=== PATIENT | male | born 1945 | race Caucasian/White ===

== ENCOUNTER 2018-02-28 18:51 | Emergency (ER) | payer OTHER ==
[~2018-02-28] VITALS: Ht 172.7 cm; Wt 91.0 kg
[~2018-02-28 18:51] MED LIST: ASPI81 PO; HYDR-3533 PO; HYDR10TA16 PO; PRIN20TA2 PO; SENN1TAB11 PO; ZOLO20CO PO
[2018-02-28 19:04] VITALS: BP 154/71; PULSE 92; RESP 18; TEMP 99.5; O2SAT 97
[2018-02-28] MEDS ORDERED: LISI-515 PO (19:36)
[2018-02-28] MEDS ORDERED: HYDR-2374 PO (19:36)
[2018-02-28] MEDS ORDERED: SERT25TA83 PO (19:36)
[2018-02-28] MEDS ORDERED: ASPI-516 CHEW (19:36)
--- NOTE | 2018-02-28 19:43 | PD ---
HPI Chief Complaint: Edema Time Seen by Provider: 19:32 Travel History International Travel<30 days: No Contact w/Intl Traveler<30days: No Traveled to known affect area: No History of Present Illness HPI 72-year-old white male presents emergency department accompanied by his significant other will complaints of left ankle pain for the past 2 weeks. The patient states that the pain has progressively come on gradually. There is no history of any trauma. He has not been sick recently. He denies any fever chills. No nausea vomiting. No numbness or tingling. He states the pain is moderate. Exacerbated by palpation and movement. No alleviating factors. He denies any history of gout in the past. He has not seen his primary care doctor regarding this. REPLACED BY [facility] Past Medical History Narrative Medical Hypertension, depression, chronic back pain, diabetes Blood Disorders: No Depression: Yes Heart Rhythm Problems: No Cancer: No High Cholesterol: Yes Chest Pain: No Congestive Heart Failure: No Diabetes: Yes Patient Takes Glucophage: No Diminished Hearing: No Genitourinary: No Hypertension: Yes Immune Disorder: No Musculoskeletal: No Neurologic: No Reproductive: No Respiratory: No Immunizations Current: No Tetanus Vaccination: < 5 Years Influenza Vaccination: Yes Past Surgical History Neurologic Surgery: Yes (BLOOD CLOT REMOVED FROM HEAD.) Tonsillectomy: Yes Other Surgery: Yes (Lumbar discectomy) Social History Alcohol Use: Yes (beer daily) Tobacco Use: Yes (3 CIGARS DAILY.) Substance Use: No Allergies-Medications (Allergen,Severity, Reaction): Coded Allergies: procaine (Unverified Allergy, Severe, 02/28/18) Reported Meds & Prescriptions Reported Meds & Active Scripts Active Doxycycline Hyclate 100 Mg Cap 100 Mg PO BID Bactrim DS (Sulfamethoxazole-Trimethoprim) 800-160 Mg Tab 1 Tab PO BID Lortab 5 mg/325 mg (Hydrocodone/Acetaminophen 5 mg/325 mg) 1 Tab 1 Tab PO Q6H PRN Reported Sertraline (Sertraline HCl) 25 Mg Tab 25 Mg PO DAILY Hydrocodone-Acetaminophen 10-300 Tab 1 Tab PO Q6H PRN Aspirin 81 Mg Chew 81 Mg CHEW DAILY Lisinopril 20 Mg Tab 20 Mg PO DAILY Senna Plus 8.6-50 mg (Senna/Docusate Sodium) 1 Tab Tab 1 Tab PO BID Lortab 10/500 (Acetaminophen/Hydrocodone Bitart) 10 Mg/500 Mg Tab 1 Tab PO Q6HPRN FOR PAIN Aspirin 81 Mg Tab 325 Mg PO DAILY Zoloft (Sertraline HCl) 20 Mg/Ml Con 20 Mg PO DAILY Prinivil (Lisinopril) 20 Mg Tab 20 Mg PO DAILY Review of Systems Except as stated in HPI: all other systems reviewed are Neg Physical Exam Narrative GENERAL: This is a well-nourished, well-developed patient, in no apparent distress. SKIN: No rashes, ecchymoses or lesions. Warm and dry. HEAD: Atraumatic. Normocephalic. EYES: PERRL, EOMI, no discharge or injection. No scleral icterus. EARS: Clear NOSE: Nasal turbinates appear normal. THROAT: Mucosa pink and moist. Airway patent. NECK: Trachea midline. supple, moves head freely. LUNGS: Clear to auscultation. CV: Regular in rhythm. ABDOMEN: Soft nontender. EXT: No clubbing cyanosis . Examination of the left lower extremity reveals moderate lateral ankle swelling and pain. It is erythematous, warm to touch. He has intact gross sensation. He has intact pulses. There is no pain in the distal forefoot or toes. No pain in the knee or hip. Data Data Last Documented VS Vital Signs Date Time Temp Pulse Resp B/P (MAP) Pulse Ox O2 Delivery O2 Flow Rate FiO2 02/28/18 19:04 99.5 92 18 154/71 (98) 97 Orders Orders Complete Blood Count With Diff (02/28/18 19:43) Basic Metabolic Panel (Bmp) (02/28/18 19:43) C-Reactive Protein (Crp) (02/28/18 19:43) Iv Access Insert/Monitor (02/28/18 19:43) Lactic Acid (02/28/18 19:43) Uric Acid (02/28/18 19:43) Sodium Chlor 0.9% 1000 Ml Inj (Ns 1000 M (02/28/18 19:45) Vancomycin Inj (Vancomycin Inj) (02/28/18 19:45) Doxycycline (Vibramycin) (02/28/18 20:45) Ondansetron Inj (Zofran Inj) (02/28/18 21:00) Morphine Inj (Morphine Inj) (02/28/18 21:00) Ed Discharge Order (02/28/18 20:47) Labs Laboratory Tests Test 02/28/18 20:00 White Blood Count 11.3 TH/MM3 Red Blood Count 5.44 MIL/MM3 Hemoglobin 16.7 GM/DL Hematocrit 48.1 % Mean Corpuscular Volume 88.3 FL Mean Corpuscular Hemoglobin 30.7 PG Mean Corpuscular Hemoglobin Concent 34.8 % Red Cell Distribution Width 13.5 % Platelet Count 213 TH/MM3 Mean Platelet Volume 7.7 FL Neutrophils (%) (Auto) 81.7 % Lymphocytes (%) (Auto) 7.0 % Monocytes (%) (Auto) 10.5 % Eosinophils (%) (Auto) 0.4 % Basophils (%) (Auto) 0.4 % Neutrophils # (Auto) 9.2 TH/MM3 Lymphocytes # (Auto) 0.8 TH/MM3 Monocytes # (Auto) 1.2 TH/MM3 Eosinophils # (Auto) 0.0 TH/MM3 Basophils # (Auto) 0.0 TH/MM3 CBC Comment DIFF FINAL Differential Comment Blood Urea Nitrogen 20 MG/DL Creatinine 1.52 MG/DL Random Glucose 116 MG/DL Calcium Level 9.4 MG/DL Uric Acid 7.2 MG/DL Sodium Level 132 MEQ/L Potassium Level 4.7 MEQ/L Chloride Level 96 MEQ/L Carbon Dioxide Level 25.6 MEQ/L Anion Gap 10 MEQ/L Estimat Glomerular Filtration Rate 45 ML/MIN Lactic Acid Level 1.8 mmol/L C-Reactive Protein 7.10 MG/DL MDM Medical Decision Making Medical Screen Exam Complete: Yes Emergency Medical Condition: Yes Medical Record Reviewed: Yes Differential Diagnosis Differential diagnosis: Sprain, strain, fracture, cellulitis, gout Narrative Course IV access is obtained. Routine laboratories including CBC, chemistry, CRP. Lactic acid, and uric acid. Patient is given vancomycin 20 mg/kg IV and doxycycline 100 mg p.o. Morphine 4 mg IV and Zofran 4 mg IV. I reviewed the patient laboratory tests. I have discussed the case with Dr. Leary who also agrees that this is an infection/cellulitis. We will recheck the patient in next 24-48 hours. Diagnosis Primary Impression: Right lower extremity cellulitis Patient Instructions: General Instructions Additional Instructions: Rest. Elevation. Continue to take your pain medications at home. Tylenol for fever. Bactrim DS and doxycycline. Recheck in the ER in 1-2 days. Follow-up with your doctor within 3-7 days. Return to the ER if any problems. Med/Other Pt SpecificInfo: Prescription(s) given Scripts Doxycycline Hyclate (Doxycycline Hyclate) 100 Mg Cap 100 MG PO BID for Infection, #20 CAP 0 Refills Prov: Jae Leary MD 02/28/18 Sulfamethoxazole-Trimethoprim (Bactrim DS) 800-160 Mg Tab 1 TAB PO BID for Infection, #20 TAB 0 Refills Prov: Jae Leary MD 02/28/18 Disposition: 01 DISCHARGE HOME Condition: Stable John V[place]ira February 28, 2018 19:43
[2018-02-28] MEDS ORDERED: VANCOMYCIN INJ 1,800 MG in SODIUM CHLORID 0.9% 500 ML INJ 500 ML IV ONE (19:45)
[2018-02-28] MEDS ORDERED: SODIUM CHLOR 0.9% 1000 ML INJ 1,000 ML IV ONE (19:45)
[2018-02-28 20:15] LABS: AUTOMATED NEUTROPHIL # 9.2 TH/MM3 (1.8-7.7); BASOPHIL % 0.4 % (0.0-2.0); EOSINOPHIL % 0.4 % (0.0-4.0); HEMATOCRIT 48.1 % (39.0-51.0); HEMOGLOBIN 16.7 GM/DL (13.0-17.0); LYMPHOCYTE # 0.8 TH/MM3 (1.0-4.8); MEAN CELL VOLUME 88.3 FL (80.0-100.0); MEAN CORPUSCULAR HEMOGLOBIN 30.7 PG (27.0-34.0); MEAN CORPUSCULAR HGB CONC 34.8 % (32.0-36.0); MEAN PLATELET VOLUME 7.7 FL (7.0-11.0); MONO % 10.5 % (0.0-8.0); MONOCYTE # 1.2 TH/MM3 (0-0.9); NEUT % 81.7 % (16.0-70.0); PLATELET COUNT 213 TH/MM3 (150-450); RED BLOOD COUNT 5.44 MIL/MM3 (4.50-5.90); RED CELL DISTRIBUTION WIDTH 13.5 % (11.6-17.2); WHITE BLOOD COUNT 11.3 TH/MM3 (4.0-11.0)
[2018-02-28 20:29] LABS: C-REACTIVE PROTEIN 7.1 MG/DL (0.00-0.30)
[2018-02-28 20:42] LABS: BICARBONATE 25.6 MEQ/L (21.0-32.0); CALCIUM 9.4 MG/DL (8.5-10.1); CREATININE 1.52 MG/DL (0.60-1.30)
[2018-02-28] MEDS ORDERED: DOXYCYCLINE HYCLATE 100 MG CAP PO ONE (20:45)
[2018-02-28] MEDS ORDERED: DOXY100C PO (20:48)
[2018-02-28] MEDS ORDERED: BACT800T5 PO (20:48)
[2018-02-28] MEDS ORDERED: METOCLOPRAMIDE HCL 10 MG/2 ML VIAL IV PUSH ONE (21:00)
[2018-02-28] MEDS ORDERED: MORPHINE SULFATE 4 MG/ML INJ IV PUSH ONE (21:00)
[2018-02-28] MEDS ORDERED: ONDANSETRON HCL 4 MG/2 ML VIAL IV PUSH ONE (21:00)
== END 2018-02-28 22:34 | disposition home or self-care (01) ==
LOC: NEPD 18:51
DX: L03.115 Cellulitis of right lower limb (principal); I10 Essential (primary) hypertension; F32.9 Major depressive disorder, single episode, unspecified; F17.290 Nicotine dependence, other tobacco product, uncomplicated
CPT/HCPCS: 80048; 83605; 84550; 85025; 86140; 96365; 96366; 96375; 99284; E0113; J2270; J2765; J3370; J7030; J7040